=== PATIENT | female | born 1930 | race Caucasian/White ===

== ENCOUNTER 2016-12-15 11:36 | Emergency (ER) | payer MEDICARE, BC ==
--- NOTE | 2016-12-15 11:43 | EDM.PDOC ---
ED HPI GENERAL MEDICAL PROBLEM - General Stated Complaint: PT HAS STOMACH PAINS Time Seen by Provider: 12/15/16 11:39 Source of Information: Reports: Patient History Limitations: Reports: No Limitations - History of Present Illness INITIAL COMMENTS - FREE TEXT/NARRATIVE: HISTORY AND PHYSICAL: [] 86-year-old female presenting with abdominal pain that is described as chronic History of Present Illness: [] Pain today has worsened to the left upper quadrant, has not taken medication for this, last bowel movement was yesterday "a little bit" Brought to the emergency department by her grandson Review of Systems: As per history of present illness and below otherwise all systems reviewed and negative. Past medical history: As per history of present illness and as reviewed below otherwise noncontributory. Medication list reviewed patient has hypertension possibly CHF rhythm disturbance Hypo- disorder Diabetic, insulin dependent History of bowel obstruction Surgical history: As per history of present illness and as reviewed below otherwise noncontributory. Social history: No reported history of drug or alcohol abuse. Family history: As per history of present illness and as reviewed below otherwise noncontributory. Physical exam: Alert answering questions appropriately. HEENT: Atraumatic, normocehpalic, pupils reactive, negative for conjunctival pallor or scleral icterus, mucous membranes moist, throat mild dryness, neck supple, nontender, trachea midline. Lungs: Clear to auscultation, breath sounds equal bilaterally, chest non tender. Heart: S1S2, regular, negative for clicks, rubs, or JVD. Abdomen: Soft, nondistended, mild generalized tenderness. Negative for masses or hepatossplenmegaly. Negative for costovertebral tenderness. Pelvis: Stable nontender. Genitourinary: Deferred. Rectal: Deferred Extremities: Atraumatic, negative for cords or calf pain. Neurovascular unremarkable. Neuro: Awake, alert, oriented. Cranial nerves II through XII unremarkable. Cerebellum unremarkable. Motor and sensory unremarkable throughout. Exam nonfocal. Have discussed with the patient and her grandson possibility of going home versus admission. Patient requests to go home and take antibiotics at home and will follow-up with her primary care provider. If symptoms worsen at all shortness of breath increasing pain she needs to return for immediate reevaluation Diagnostics: CBC, CMP, abdominal CT Therapeutics: []Normal saline bolus 500 and 50/h Impression: [#1 constipation #2 pneumonia] Plan: [#1 start on milk of magnesia to relieve the constipation #2 antibiotics per their request will be sent to [email or web address] drug #3 follow-up with your primary care provider this week] Definitive disposition and diagnosis as appropriate pending reevaluation and review of above. Onset: Today, Gradual Duration: Chronic, Getting Worse Location: Reports: Abdomen Quality: Reports: Ache Severity: Mild Improves with: Reports: None Worsens with: Reports: None Abdominal Pain Score (Numeric/FACES): 10 - Related Data Allergies Allergy/AdvReac Type Severity Reaction Status Date / Time Penicillins Allergy Cannot Verified 12/15/16 11:53 Remember Home Meds: Home Meds Amiodarone HCl 200 mg PO DAILY 12/15/16 [History] Cephalexin [IJD: Cephalexin] 500 mg PO .EVERY 8 HOURS #30 cap 12/15/16 [Rx] Furosemide 40 mg PO DAILY 12/15/16 [History] Insulin Aspart [NovoLOG] 10 units SQ ASDIRECTED 12/15/16 [History] Insulin Detemir [Levemir] 13 units SQ DAILY 12/15/16 [History] Latanoprost 1 drop EYEBOTH DAILY 12/15/16 [History] Levothyroxine 112 mcg PO DAILY 12/15/16 [History] Metoprolol Succinate [Toprol XL] 25 mg PO DAILY 12/15/16 [History] Omeprazole 20 mg PO DAILY 12/15/16 [History] Warfarin [Coumadin] 5 mg PO ASDIRECTED 12/15/16 [History] amLODIPine [Norvasc] 5 mg PO DAILY 12/15/16 [History] ED ROS GENERAL - Review of Systems Review Of Systems: ROS reveals no pertinent complaints other than HPI. ED EXAM, GI/ABD - Physical Exam Exam: See Below (See dictation) Course - Vital Signs Last Recorded V/S: Last Vital Signs Temp 36.3 C 12/15/16 14:10 Pulse 66 12/15/16 14:10 Resp 18 12/15/16 14:10 BP 162/69 H 12/15/16 14:10 Pulse Ox 94 L 12/15/16 14:10 - Orders/Labs/Meds Orders: Active Orders 24 hr Category Date Time Status EKG Documentation Completion [RC] STAT Care 12/15/16 11:46 Active Sodium Chloride 0.9% [Saline Flush] Med 12/15/16 11:46 Active 10 ml FLUSH ASDIRECTED PRN Sodium Chloride 0.9% [Saline Flush] Med 12/15/16 11:46 Active 2.5 ml FLUSH ASDIRECTED PRN Saline Lock Insert [OM.PC] Stat Oth 12/15/16 11:46 Ordered Medication Orders Sodium Chloride (Saline Flush) 10 ml FLUSH ASDIRECTED PRN PRN Reason: Keep Vein Open Sodium Chloride (Saline Flush) 2.5 ml FLUSH ASDIRECTED PRN PRN Reason: Keep Vein Open Labs: Laboratory Tests 12/15/16 12/15/16 12/15/16 Range/Units 11:47 11:58 11:58 WBC 12.04 H (4.0-11.0) K/uL RBC 4.04 L (4.30-5.90) M/uL Hgb 12.1 (12.0-16.0) g/dL Hct 36.2 (36.0-46.0) % MCV 89.6 (80.0-98.0) fL MCH 30.0 (27.0-32.0) pg MCHC 33.4 (31.0-37.0) g/dL RDW Std Deviation 43.7 (28.0-62.0) fl RDW Coeff of Topher 13 (11.0-15.0) % Plt Count 212 (150-400) K/uL MPV 9.30 (7.40-12.00) fL Neut % (Auto) 87.2 H (48.0-80.0) % Lymph % (Auto) 5.7 L (16.0-40.0) % [place] % (Auto) 6.8 (0.0-15.0) % Eos % (Auto) 0.2 (0.0-7.0) % Baso % (Auto) 0.1 (0.0-1.5) % Neut # (Auto) 10.5 H (1.4-5.7) K/uL Lymph # (Auto) 0.7 (0.6-2.4) K/uL [place] # (Auto) 0.8 (0.0-0.8) K/uL Eos # (Auto) 0.0 (0.0-0.7) K/uL Baso # (Auto) 0.0 (0.0-0.1) K/uL Nucleated RBC % 0.0 /100WBC Nucleated RBCs # 0 K/uL INR (0.86-1.11) Sodium 130 L (136-146) mmol/L Potassium 4.7 (3.5-5.1) mmol/L Chloride 94 L (98-110) mmol/L Carbon Dioxide 24 (21-31) mmol/L BUN 22 (6.0-23.0) mg/dL Creatinine 1.0 (0.6-1.5) mg/dL Est Cr Clr Drug Dosing TNP Estimated GFR (MDRD) 52.6 ml/min Glucose 266 H (60-110) mg/dL POC Glucose 235 H (60-110) mg/dL Calcium 8.4 L (8.8-10.8) mg/dL Total Bilirubin 0.8 (0.1-1.5) mg/dL AST 300 H (5-40) IU/L ALT 110 H (8-54) IU/L Alkaline Phosphatase 85 (40-150) Troponin I (0.0-0.29) NG/ML Total Protein 6.6 (6.0-8.0) g/dL Albumin 3.8 (3.4-4.8) g/dL Globulin 2.8 (2.0-3.5) g/dL Albumin/Globulin Ratio 1.4 (1.3-2.8) Amylase 34 (10-90) U/L Urine Color Urine Appearance Urine pH (5.0-8.0) Ur Specific [place] (1.001-1.035) Urine Protein (NEGATIVE) mg/dL Urine Glucose (UA) (NEGATIVE) mg/dL Urine Ketones (NEGATIVE) mg/dL Urine Occult Blood (NEGATIVE) Urine Nitrite (NEGATIVE) Urine Bilirubin (NEGATIVE) Urine Urobilinogen (<2.0) EU/dL Ur Leukocyte Esterase (NEGATIVE) Urine RBC (0-2/HPF) Urine WBC (0-5/HPF) Ur Epithelial Cells (NONE-FEW) Amorphous Sediment (NEGATIVE) Urine Bacteria (NEGATIVE) 12/15/16 12/15/16 12/15/16 Range/Units 11:58 11:58 12:25 WBC (4.0-11.0) K/uL RBC (4.30-5.90) M/uL Hgb (12.0-16.0) g/dL Hct (36.0-46.0) % MCV (80.0-98.0) fL MCH (27.0-32.0) pg MCHC (31.0-37.0) g/dL RDW Std Deviation (28.0-62.0) fl RDW Coeff of [place]her (11.0-15.0) % Plt Count (150-400) K/uL MPV (7.40-12.00) fL Neut % (Auto) (48.0-80.0) % Lymph % (Auto) (16.0-40.0) % [place] % (Auto) (0.0-15.0) % Eos % (Auto) (0.0-7.0) % Baso % (Auto) (0.0-1.5) % Neut # (Auto) (1.4-5.7) K/uL Lymph # (Auto) (0.6-2.4) K/uL [place] # (Auto) (0.0-0.8) K/uL Eos # (Auto) (0.0-0.7) K/uL Baso # (Auto) (0.0-0.1) K/uL Nucleated RBC % /100WBC Nucleated RBCs # K/uL INR 2.02 H (0.86-1.11) Sodium (136-146) mmol/L Potassium (3.5-5.1) mmol/L Chloride (98-110) mmol/L Carbon Dioxide (21-31) mmol/L BUN (6.0-23.0) mg/dL Creatinine (0.6-1.5) mg/dL Est Cr Clr Drug Dosing Estimated GFR (MDRD) ml/min Glucose (60-110) mg/dL POC Glucose (60-110) mg/dL Calcium (8.8-10.8) mg/dL Total Bilirubin (0.1-1.5) mg/dL AST (5-40) IU/L ALT (8-54) IU/L Alkaline Phosphatase (40-150) Troponin I < 0.10 (0.0-0.29) NG/ML Total Protein (6.0-8.0) g/dL Albumin (3.4-4.8) g/dL Globulin (2.0-3.5) g/dL Albumin/Globulin Ratio (1.3-2.8) Amylase (10-90) U/L Urine Color YELLOW Urine Appearance CLEAR Urine pH 6.0 (5.0-8.0) Ur Specific [place] 1.010 (1.001-1.035) Urine Protein NEGATIVE (NEGATIVE) mg/dL Urine Glucose (UA) 250 H (NEGATIVE) mg/dL Urine Ketones NEGATIVE (NEGATIVE) mg/dL Urine Occult Blood NEGATIVE (NEGATIVE) Urine Nitrite NEGATIVE (NEGATIVE) Urine Bilirubin NEGATIVE (NEGATIVE) Urine Urobilinogen 0.2 (<2.0) EU/dL Ur Leukocyte Esterase NEGATIVE (NEGATIVE) Urine RBC 0-1 (0-2/HPF) Urine WBC 0-1 (0-5/HPF) Ur Epithelial Cells FEW (NONE-FEW) Amorphous Sediment RARE (NEGATIVE) Urine Bacteria RARE (NEGATIVE) Meds: Medications Generic Name Dose Route Start Last Admin Trade Name Freq PRN Reason Stop Dose Admin Sodium Chloride 10 ml 12/15/16 11:46 Saline Flush FLUSH ASDIRECTED PRN Keep Vein Open Sodium Chloride 2.5 ml 12/15/16 11:46 Saline Flush FLUSH ASDIRECTED PRN Keep Vein Open Discontinued Medications Generic Name Dose Route Start Last Admin Trade Name Freq PRN Reason Stop Dose Admin Sodium Chloride 500 mls @ 999 mls/hr 12/15/16 12:36 12/15/16 12:42 Normal Saline IV 12/15/16 13:06 999 mls/hr STAT ONE Administration Insulin Human Regular 5 unit 12/15/16 14:45 12/15/16 14:56 Novolin R SUBCUT 12/15/16 14:46 5 units ONETIME ONE Administration Protocol Iopamidol 50 ml 12/15/16 14:07 Isovue-370 (76%) IV 12/15/16 14:08 ONETIME STA Departure - Departure Time of Disposition: 15:04 Disposition: Home, Self-Care 01 Condition: Good Clinical Impression: Constipation Qualifiers: Constipation type: unspecified constipation type Qualified Code(s): K59.00 - Constipation, unspecified Pneumonia Qualifiers: Pneumonia type: due to unspecified organism Laterality: unspecified laterality Lung location: unspecified part of lung Qualified Code(s): J18.9 - Pneumonia, unspecified organism - Discharge Information Prescriptions: Cephalexin [IJD: Cephalexin] 500 mg PO .EVERY 8 HOURS #30 cap - My Orders Last 24 Hours: My Active Orders 12/15/16 11:46 EKG Documentation Completion [RC] STAT Sodium Chloride 0.9% [Saline Flush] 10 ml FLUSH ASDIRECTED PRN Sodium Chloride 0.9% [Saline Flush] 2.5 ml FLUSH ASDIRECTED PRN Saline Lock Insert [OM.PC] Stat - Assessment/Plan Last 24 Hours: My Active Orders 12/15/16 11:46 EKG Documentation Completion [RC] STAT Sodium Chloride 0.9% [Saline Flush] 10 ml FLUSH ASDIRECTED PRN Sodium Chloride 0.9% [Saline Flush] 2.5 ml FLUSH ASDIRECTED PRN Saline Lock Insert [OM.PC] Stat
[2016-12-15] MEDS ORDERED: Sodium Chloride 0.9% 2.5 ML Syringe FLUSH PRN (11:46)
[2016-12-15] MEDS ORDERED: Sodium Chloride 0.9% 10 ML Syringe FLUSH PRN (11:46)
[2016-12-15 12:29] LABS: CHLORIDE,CL 94 mmol/L (98-110); SODIUM,NA 130 mmol/L (136-146)
[2016-12-15] MEDS ORDERED: Sodium Chloride 0.9% 500 ML IV ONE (12:36)
[2016-12-15] MEDS ORDERED: Iopamidol 755 MG/ML 50 ML Bottle IV STA (14:07)
--- NOTE | 2016-12-15 14:38 | CT ---
CT of the abdomen and pelvis with contrast. HISTORY: Pain TECHNIQUE: Axial CT images were obtained of the abdomen and pelvis following administration of 45 mL of Isovue-370 without complication. Coronal and sagittal reconstructions obtained. FINDINGS: There is consolidation within the left lower lobe and partially within the left upper lobe. No pleur al effusion. There is a calcified granuloma within the right hepatic lobe. Anterior and extrahepatic biliary duct al dilatation is noted. The common bile duct is measured up to 1.8 cm. Cholecystectomy. There is a m inimal prominence of the pancreatic duct. The spleen, adrenal glands and pancreas otherwise appear n ormal. There is no bulky retroperitoneal lymphadenopathy or abdominal ascites. The kidneys enhance and function symmetrically without evidence of obstructive uropathy. There is mi ld scarring within the lower pole of the left kidney. Nonobstructing stone within the lower pole of the left kidney. There is a moderate amount of stool throughout the colon without evidence of obstruction. No focal p ericolonic inflammation or stranding. The urinary bladder appears grossly normal. No bulky pelvic ly mphadenopathy or free pelvic fluid. Bilateral total hip hardware noted. Mild compression noted at L3. Overall the osseous structures jamie ear osteopenic. IMPRESSION: 1. Consolidation within the left lung base, likely pneumonia. 2. Mild amount of stool and gas throughout the colon, likely representing constipation. 3. Mild intrahepatic and moderate extrahepatic biliary ductal dilatation status post cholecystectomy . 4. Osteopenia with a mild compression deformity at L3. 5. Bilateral total hip hardware. 6. Nonobstructing left nephrolithiasis.
[2016-12-15] MEDS ORDERED: Insulin Regular, Human 100 Units/ML 10 ML Vial SUBCUT ONE (14:45)
[2016-12-15] MEDS ORDERED: Magnesium Hydroxide 400 MG/5 ML Susp 30 ML Cup PO PRN (15:07)
[2016-12-15 16:18] VITALS: BP 183/80
== END 2016-12-15 15:45 | disposition home or self-care (01) ==
LOC: MW.ED 11:36
DX: K59.00 Constipation, unspecified (principal); J18.9 Pneumonia, unspecified organism; I10 Essential (primary) hypertension; E11.9 Type 2 diabetes mellitus without complications; Z79.4 Long term (current) use of insulin; Z79.899 Other long term (current) drug therapy; Z88.0 Allergy status to penicillin; Z79.01 Long term (current) use of anticoagulants
CPT/HCPCS: 36415; 74177; 80053; 81001; 82150; 82962; 84484; 85025; 85610; 93005; 96360; 96372; 99284; A9270; J1815; J7040; Q9967